=== PATIENT | male | born 2000 | race Caucasian/White ===

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

== ENCOUNTER 2018-06-14 22:50 | Emergency (ER) | payer BC, OTHER ==
[2018-06-14 23:12] VITALS: BP 141/97
--- NOTE | 2018-06-14 23:25 | EDM.PDOC ---
ED HPI GENERAL MEDICAL PROBLEM - General Chief Complaint: Gastrointestinal Problem Stated Complaint: blood in vomit an stool Time Seen by Provider: 06/14/18 23:23 - History of Present Illness INITIAL COMMENTS - FREE TEXT/NARRATIVE: 17-year-old male presents to the emergency room with complaints of vomiting blood bloody diarrhea and blood coming from his right ear. Patient states he had some vomiting was mostly bright red tasted much like what his mom cooked for dinner. This occurred one time shortly before arrival the patient also thinks he had some blood coming from his right ear but only a small amount. The patient has had loose stools for the last 10 days and he states that these become bloody as well. He denies fevers or chills Generalized Pain Score (Numeric/FACES): 9 - Related Data Allergies Allergy/AdvReac Type Severity Reaction Status Date / Time No Known Allergies Allergy Verified 06/14/18 23:12 Home Meds: Home Meds Pantoprazole Sodium [Protonix] 40 mg PO Q24H #30 tablet. 06/15/18 [Rx] Past Medical History Cardiovascular History: Reports: Heart Murmur Gastrointestinal History: Reports: Other (See Below) Other Gastrointestinal History: vomiting Genitourinary History: Reports: Renal Calculus Musculoskeletal History: Reports: Fracture Other Musculoskeletal History: left leg Neurological History: Reports: Other (See Below) Other Neuro History: alcohol Psychiatric History: Reports: ADD, ADHD, Other (See Below) Other Psychiatric History: opositional defiant disorder, alcohol abuse Dermatologic History: Reports: Other (See Below) Other Dermatologic History: vertoligo - Infectious Disease History Infectious Disease History: Reports: Chicken Pox - Past Surgical History HEENT Surgical History: Reports: Adenoidectomy, Myringotomy w Tube(s), Tonsillectomy Social & Family History - Family History Family Medical History: Noncontributory - Tobacco Use Smoking Status *Q: Current Every Day Smoker Years of Tobacco use: 9 Packs/Tins Daily: 0.5 - Caffeine Use Caffeine Use: Reports: Soda - Recreational Drug Use Recreational Drug Use: No - Living Situation & Occupation Living situation: Reports: Single Occupation: Employed ED ROS GENERAL - Review of Systems Review Of Systems: See Below Constitutional: Denies: Fever, Chills HEENT: Reports: Ear Discharge. Denies: No Symptoms Respiratory: Reports: No Symptoms Cardiovascular: Reports: No Symptoms GI/Abdominal: Reports: Bloody Stool, Hematemesis. Denies: Abdominal Pain : Reports: No Symptoms Musculoskeletal: Reports: No Symptoms Skin: Reports: No Symptoms Neurological: Reports: No Symptoms Psychiatric: Reports: No Symptoms Immunologic: Reports: No Symptoms ED EXAM, GI/ABD - Physical Exam Exam: See Below Exam Limited By: No Limitations General Appearance: Alert, No Apparent Distress, Other (Feels mildly tachycardic ) Eyes: Bilateral: Normal Appearance Ears: Normal External Exam, Normal Canal, Hearing Grossly Normal, Normal TMs, Other (Close examination of the right ear that apparently had blood coming out of it is clean and dry no bloody residue no dried blood) Nose: Normal Inspection, Normal Mucosa, No Blood Throat/Mouth: Normal Inspection, Normal Lips, Normal Teeth, Normal Gums, Normal Oropharynx, Normal Voice, No Airway Compromise Head: Atraumatic, Normocephalic Neck: Normal Inspection, Supple, Non-Tender, Full Range of Motion. No: Lymphadenopathy (L), Lymphadenopathy (R) Respiratory/Chest: No Respiratory Distress, Lungs Clear, Normal Breath Sounds Cardiovascular: Regular Rate, Rhythm, No Edema, No Murmur GI/Abdominal Exam: Normal Bowel Sounds, Soft, Non-Tender, Other (Obesity) Rectal (Males) Exam: Heme - Stool, Other (Rectal exam shows no evidence of any blood Hemoccult negative) Back Exam: Normal Inspection, Full Range of Motion. No: CVA Tenderness (L), CVA Tenderness (R) Extremities: Normal Inspection, No Pedal Edema Neurological: Alert, Oriented Psychiatric: Anxious (This did improve over time) Skin Exam: Warm, Dry, Intact Course - Vital Signs Last Recorded V/S: Last Vital Signs Temp 36.3 C 06/14/18 23:07 Pulse 104 H 06/14/18 23:07 Resp 18 06/14/18 23:07 BP 141/97 H 06/14/18 23:07 Pulse Ox 98 06/14/18 23:07 - Orders/Labs/Meds Labs: Laboratory Tests 06/15/18 06/15/18 06/15/18 Range/Units 00:35 00:35 00:35 WBC 10.52 H (4.23-9.07) K/mm3 RBC 5.76 (4.63-6.08) M/mm3 Hgb 15.6 (13.7-17.5) gm/L Hct 47.0 (40.1-51.0) % MCV 81.6 (79.0-92.2) fl MCH 27.1 (25.7-32.2) pg MCHC 33.2 (32.2-35.5) g/dl RDW Std Deviation 44.5 H (35.1-43.9) fL Plt Count 322 (163-337) K/mm3 MPV 9.9 (9.4-12.3) fl Neutrophils % (Manual) 75 H (40-60) % Band Neutrophils % 0 (0-10) % Lymphocytes % (Manual) 18 L (20-40) % Atypical Lymphs % 0 % Monocytes % (Manual) 7 (2-10) % Eosinophils % (Manual) 0 L (0.8-7.0) % Basophils % (Manual) 0 L (0.2-1.2) Platelet Estimate Adequate Plt Morphology Comment Normal Anisocytosis 1+ slight Microcytosis 1+ slight Macrocytosis 1+ slight RBC Morph Comment Not Reportable PT 10.5 (9.5-12.1) SECONDS INR 0.96 APTT 31 (24-31) SECONDS Sodium 142 (136-145) mEq/L Potassium 4.0 (3.5-5.1) mEq/L Chloride 106 (98-107) mEq/L Carbon Dioxide 25 (21-32) mEq/L Anion Gap 15.0 (5-15) BUN 18 (7-18) mg/dL Creatinine 1.1 (0.7-1.3) mg/dL Est Cr Clr Drug Dosing 118.56 mL/min Estimated GFR (MDRD) > 60 (>60) mL/min BUN/Creatinine Ratio 16.4 (14-18) Glucose 107 H (74-106) mg/dL Calcium 9.6 (8.5-10.1) mg/dL Total Bilirubin 0.3 (0.2-1.0) mg/dL AST 24 (15-37) U/L ALT 38 (16-63) U/L Alkaline Phosphatase 118 H (46-116) U/L Total Protein 8.1 (6.4-8.2) g/dl Albumin 4.0 (3.4-5.0) g/dl Globulin 4.1 gm/dL Albumin/Globulin Ratio 1.0 (1-2) Urine Color (Yellow) Urine Appearance (Clear) Urine pH (5.0-8.0) Ur Specific [place] (1.005-1.030) Urine Protein (Negative) Urine Glucose (UA) (Negative) Urine Ketones (Negative) Urine Occult Blood (Negative) Urine Nitrite (Negative) Urine Bilirubin (Negative) Urine Urobilinogen (0.2-1.0) Ur Leukocyte Esterase (Negative) Urine RBC (0-5) /hpf Urine WBC (0-5) /hpf Ur Epithelial Cells (0-5) /hpf Urine Bacteria (FEW) /hpf Urine Mucus (FEW) /hpf Ethyl Alcohol 0.00 (0.00) gm% 06/15/18 Range/Units 00:40 WBC (4.23-9.07) K/mm3 RBC (4.63-6.08) M/mm3 Hgb (13.7-17.5) gm/L Hct (40.1-51.0) % MCV (79.0-92.2) fl MCH (25.7-32.2) pg MCHC (32.2-35.5) g/dl RDW Std Deviation (35.1-43.9) fL Plt Count (163-337) K/mm3 MPV (9.4-12.3) fl Neutrophils % (Manual) (40-60) % Band Neutrophils % (0-10) % Lymphocytes % (Manual) (20-40) % Atypical Lymphs % % Monocytes % (Manual) (2-10) % Eosinophils % (Manual) (0.8-7.0) % Basophils % (Manual) (0.2-1.2) Platelet Estimate Plt Morphology Comment Anisocytosis Microcytosis Macrocytosis RBC Morph Comment PT (9.5-12.1) SECONDS INR APTT (24-31) SECONDS Sodium (136-145) mEq/L Potassium (3.5-5.1) mEq/L Chloride (98-107) mEq/L Carbon Dioxide (21-32) mEq/L Anion Gap (5-15) BUN (7-18) mg/dL Creatinine (0.7-1.3) mg/dL Est Cr Clr Drug Dosing mL/min Estimated GFR (MDRD) (>60) mL/min BUN/Creatinine Ratio (14-18) Glucose (74-106) mg/dL Calcium (8.5-10.1) mg/dL Total Bilirubin (0.2-1.0) mg/dL AST (15-37) U/L ALT (16-63) U/L Alkaline Phosphatase (46-116) U/L Total Protein (6.4-8.2) g/dl Albumin (3.4-5.0) g/dl Globulin gm/dL Albumin/Globulin Ratio (1-2) Urine Color Yellow (Yellow) Urine Appearance Cloudy H (Clear) Urine pH 7.0 (5.0-8.0) Ur Specific [place] 1.020 (1.005-1.030) Urine Protein Negative (Negative) Urine Glucose (UA) Negative (Negative) Urine Ketones Negative (Negative) Urine Occult Blood Negative (Negative) Urine Nitrite Negative (Negative) Urine Bilirubin Negative (Negative) Urine Urobilinogen 0.2 (0.2-1.0) Ur Leukocyte Esterase Negative (Negative) Urine RBC 0-5 (0-5) /hpf Urine WBC 0-5 (0-5) /hpf Ur Epithelial Cells Not seen (0-5) /hpf Urine Bacteria Not seen (FEW) /hpf Urine Mucus Not seen (FEW) /hpf Ethyl Alcohol (0.00) gm% - Re-Assessments/Exams Free Text/Narrative Re-Assessment/Exam: 06/14/18 23:47 Patient denied lab work is not sure what he wants to do I offered start him on PPI therapy he will think about it. 06/15/18 00:18 Now the patient consents to blood work 06/15/18 02:44 Laboratory evaluation is unrevealing we'll start him on PPI therapy he needs to follow-up in the clinic I do not believe he had rectal bleeding they're certainly no evidence of this on exam if he had blood coming from his ear one would think he would have some sort of bloody residue. His symptom complex is a mystery. I cannot exclude that he has some sort of stimulant onboard. Departure - Departure Time of Disposition: 02:45 Disposition: Home, Self-Care 01 Clinical Impression: GI bleeding - Discharge Information Prescriptions: Pantoprazole Sodium [Protonix] 40 mg PO Q24H #30 tablet. Referrals: PCP,None [Primary Care Provider] - Forms: ED Department Discharge Additional Instructions: Return to the emergency room with any questions or problems. Follow-up in the clinic early next week for recheck. [id number] You have been started on Protonix take one daily.
[2018-06-15] MEDS ORDERED: Pantoprazole 40 MG Tab.CR PO ONE (02:38)
== END 2018-06-15 02:56 | disposition home or self-care (01) ==
LOC: JD.ED 22:50
DX: K92.2 Gastrointestinal hemorrhage, unspecified (principal); F17.210 Nicotine dependence, cigarettes, uncomplicated; Z90.89 Acquired absence of other organs; Z96.22 Myringotomy tube(s) status
CPT/HCPCS: 36415; 80053; 81001; 85007; 85027; 85610; 85730; 99285; A9270; G0480; 99283